=== PATIENT | female | born 1935 | race Caucasian/White ===

== ENCOUNTER 2017-03-18 13:30 | Emergency (ER) | payer MEDICARE ==
[~2017-03-18] VITALS: Ht 157.5 cm; Wt 86.6 kg
[2017-03-18 14:44] LABS: BLOOD UREA NITROGEN 16 mg/dL (7-18)
[2017-03-18 14:52] LABS: IS PT STATUS REG ER OR PRE ER? YES
[2017-03-18 15:17] VITALS: BP 133/71
== END 2017-03-18 15:20 | disposition home or self-care (01) ==
LOC: ED 15:16
DX: I10 Essential (primary) hypertension (principal); I95.9 Hypotension, unspecified
CPT/HCPCS: 36415; 80048; 82040; 83880; 84484; 85025; 93005; 99285

== ENCOUNTER 2019-11-18 10:08 | Emergency (ER) | payer MEDICARE ==
[~2019-11-18] VITALS: Ht 152.4 cm; Wt 84.7 kg
[2019-11-18 10:13] VITALS: BP 177/87
[2019-11-18 11:19] LABS: RAPID INFLUENZA A Negative (Negative); RAPID INFLUENZA B Negative (Negative)
[2019-11-18 11:36] LABS: BASOPHILS # (AUTO) 0.02 x10^3/uL (0-0.1); BASOPHILS % (AUTO) 0 % (0-1); EOSINOPHILS # (AUTO) 0.12 x10^3/uL (0-0.4); EOSINOPHILS % (AUTO) 2 % (1-7); LYMPHOCYTES # (AUTO) 2.13 x10^3/uL (1-3.4); LYMPHOCYTES % (AUTO) 28 % (22-44); MD NO; MEAN CORPUSCULAR HEMOGLOBIN 30.6 pg (27.0-34.8); MEAN CORPUSCULAR HGB CONC 33.5 g/dL (32.4-35.8); MEAN CORPUSCULAR VOLUME 91.4 fL (80-100); MEAN PLATELET VOLUME 7.2 fL (7.4-10.4); MONOCYTES # (AUTO) 0.61 x10^3/uL (0.2-0.8); MONOCYTES % (AUTO) 8 % (2-9); NEUTROPHILS # (AUTO) 4.63 x10^3/uL (1.8-6.8); NEUTROPHILS % (AUTO) 62 % (42-75); PLATELET COUNT 275 x10^3/uL (130-400); RED BLOOD COUNT 4.82 x10^6/uL (3.82-5.3); RED CELL DISTRIBUTION WIDTH 12.7 % (9.6-15.2)
[2019-11-18 11:44] LABS: ALBUMIN 3.2 g/dL (3.4-5.0); ANION GAP 8 mmol/L (5-15); CALCIUM 8.8 mg/dL (8.5-10.1); CHLORIDE 110 mmol/L (98-107); CREATININE 0.71 mg/dL (0.55-1.02)
== END 2019-11-18 12:37 | disposition home or self-care (01) ==
LOC: ED 12:31
DX: J06.9 Acute upper respiratory infection, unspecified (principal); E03.9 Hypothyroidism, unspecified; I10 Essential (primary) hypertension
CPT/HCPCS: 36415; 71046; 80048; 82040; 83605; 85025; 87400; 99284